=== PATIENT | female | born 1995 | race Caucasian/White ===

== ENCOUNTER → 2019-05-17 | Outpatient (CLI) | payer OTHER ==
[2019-05-17 18:16] LABS: FREE T4 1.16 NG/DL (0.76-1.46); THYROID STIMULATING HORMONE 1.56 uIU/ML (0.358-3.740)
== END ==
LOC: M SMT 14:17
PROVIDERS: ATTEND Advanced Practice Midwife
DX: N64.52 Nipple discharge (principal)

== ENCOUNTER → 2019-11-12 | Outpatient (CLI) | payer OTHER ==
--- NOTE | 2019-11-13 06:08 | REP ---
Clinical: Symptoms related to peripheral vascular disease to the lower extremities. Technique: Real time frazier scale and color Doppler evaluation of the bilateral lower extremity arterial vasculature using linear high frequency transducer. Findings: Frazier scale and color images demonstrate mild atheromatous plaquing without areas of stenosis or occlusion. Doppler interrogation demonstrates normal triphasic arterial wave forms and velocities bilaterally. Peak systolic velocities (cm/sec) RIGHT LEFT Common femoral artery 98.3 146.2 Profunda femoris 74 62.6 SFA (proximal) 84.5 110.7 SFA (mid) 65.4 85.1 SFA (distal) 50.3 66.1 Popliteal artery 40.5 43.4 DESIRE (prox.) 55.9 40.9 Tibioperoneal trunk 47.5 62.2 FLOOR COVERING INSTALLER (prox.) 34.7 55.3 FLOOR COVERING INSTALLER (distal) 25.3 25.5 DESIRE (distal) 22.4 32.8 Impression: Mild atherosclerotic changes without focal occlusion or stenosis. Electronically Signed by Elkin Membreno MD 11/13/2019 05:59 A
== END ==
LOC: M RAD 11:39
PROVIDERS: ATTEND Internal Medicine Cardiovascular Disease
DX: R09.89 Other specified symptoms and signs involving the circulatory and respiratory systems (principal)

== ENCOUNTER → 2020-05-08 | Outpatient (CLI) | payer OTHER | LOC: M PLALAB 10:06 | PROVIDERS: ATTEND Advanced Practice Midwife | DX: Z15.09 Genetic susceptibility to other malignant neoplasm (principal) ==

== ENCOUNTER → 2020-05-08 | Outpatient (REF) | payer OTHER | LOC: M SFHCWAGY 12:58 | PROVIDERS: ATTEND Advanced Practice Midwife | DX: Z01.419 Encounter for gynecological examination (general) (routine) without abnormal findings (principal); Z12.4 Encounter for screening for malignant neoplasm of cervix ==